=== PATIENT | female | born 1995 | race Caucasian/White ===

== ENCOUNTER 2023-12-06 19:38 | Inpatient (IN) | payer OTHER, SELFPAY ==
[2023-12-06 20:11] LABS: % Basophils 0.4 % (0-2); % Eosinophils 0.6 % (0-6); % Immature Granulocytes 0.7 % (0-0.5); % Lymphocytes 23.6 % (20.5-51.1); % Monocytes 6.2 % (1.7-9.3); % Neutrophils 68.5 % (42.2-75.2); Absolute Eosinophils 0.1 10^3/uL (0-0.7); Absolute Immature Granulocytes 0.1 10^3/uL (0-0.05); Absolute Lymphocytes 2.3 10^3/uL (1.2-3.4); Absolute Monocytes 0.6 10^3/uL (0.1-0.6); Absolute Neutrophils 6.5 10^3/uL (1.4-6.5); Hematocrit 32.5 % (37.0-47.0); Hemoglobin 11.8 g/dL (12.0-16.0); Mean Corp Hgb Conc. 36.3 g/dL (33.0-37.0); Mean Corpuscular Hgb 30.9 pg (27.0-31.0); Mean Corpuscular Volume 85.1 fL (81.0-99.0); Mean Platelet Volume 12.8 fL (7.4-10.4); Nucleated Red Blood Cells % 0 %; Platelet Count 137 10^3/uL (130-400); Red Blood Cell Count 3.82 10^6/uL (4.20-5.40); Red Cell Dist. Width 13.5 % (11.5-14.5); White Blood Cell Count 9.5 10^3/uL (4.8-10.8)
[2023-12-06 20:13] VITALS: BP 132/90; BMI 28.7
[2023-12-06] MEDS: CYTOTEC 25 MICROGRAM VAG (20:43)
[2023-12-07] MEDS: LR 1000 IV ×3 (01:15→19:08)
[2023-12-07] MEDS: PENICILLIN 110 UNITS IV (01:29)
[2023-12-07] MEDS: SUBLIMAZE 100 MCG EPIDURAL (02:22)
[2023-12-07] MEDS: FENTANYL/BUPIVACAINE 100 EPIDURAL ×2 (02:22→10:55)
[2023-12-07] MEDS: PENICILLIN 55 UNITS IV ×3 (05:43→14:38)
[2023-12-07] MEDS: ZOFRAN 4 MG IV ×2 (08:31→20:26)
[2023-12-07] MEDS: PITOCIN 30 UNITS/NSS 500 ML IV (11:53)
[2023-12-07] MEDS: METHERGINE INJECTION 0.200000000000000011 MG IM (17:39)
[2023-12-07] MEDS: TRANDATE 40 MG IV (18:46)
[2023-12-07 19:03] LABS: ALT (SGPT) 15 U/L (0-35); AST (SGOT) 42 U/L (14-36); Albumin 3.1 g/dl (3.5-5.0); Alkaline Phosphatase 186 U/L (38-126); Blood Urea Nitrogen 11 mg/dl (7-17); Carbon Dioxide 12 mmol/L (22-30); Chloride 107 mmol/L (98-107); Estimated Creatinine Clearance 113 ml/min; Glucose 101 mg/dl (70-99); Potassium 4.4 mmol/L (3.5-5.1); Sodium 132 mmol/L (135-145); Total Bilirubin 0.8 mg/dl (0.2-1.3); Total Protein 5.7 g/dl (6.3-8.2); eGFR > 60.00
[2023-12-07] MEDS: MAGNESIUM SULFATE 100 IV (19:08)
[2023-12-07 19:09] LABS: % Basophils 0.2 % (0-2); % Eosinophils 0.5 % (0-6); % Immature Granulocytes 0.6 % (0-0.5); % Lymphocytes 4.6 % (20.5-51.1); % Monocytes 5.1 % (1.7-9.3); Absolute Basophils 0.1 10^3/uL (0-0.2); Absolute Eosinophils 0.1 10^3/uL (0-0.7); Absolute Immature Granulocytes 0.1 10^3/uL (0-0.05); Absolute Monocytes 1.1 10^3/uL (0.1-0.6); Absolute Neutrophils 19.3 10^3/uL (1.4-6.5); Hematocrit 35.3 % (37.0-47.0); Hemoglobin 12.9 g/dL (12.0-16.0); Mean Corp Hgb Conc. 36.5 g/dL (33.0-37.0); Mean Corpuscular Hgb 30.9 pg (27.0-31.0); Mean Corpuscular Volume 84.4 fL (81.0-99.0); Mean Platelet Volume 12.5 fL (7.4-10.4); Nucleated Red Blood Cells % 0 %; Platelet Count 125 10^3/uL (130-400); Red Blood Cell Count 4.18 10^6/uL (4.20-5.40); Red Cell Dist. Width 13.8 % (11.5-14.5); White Blood Cell Count 21.7 10^3/uL (4.8-10.8)
[2023-12-07] MEDS: TRANDATE 20 MG IV (19:11)
[2023-12-07] MEDS: MAGNESIUM SULFATE 40 GRAM 1000 IV (19:32)
[2023-12-07] MEDS: TORADOL 15 MG IV (20:25)
[2023-12-07] MEDS: TYLENOL 650 MG PO (23:28)
[2023-12-08] MEDS: TYLENOL 650 MG PO ×4 (04:04→18:45)
[2023-12-08 04:57] LABS: Hematocrit 31.6 % (37.0-47.0); Hemoglobin 11.2 g/dL (12.0-16.0)
[2023-12-08] MEDS: LR IV (05:46)
[2023-12-08 06:05] LABS: Magnesium 6.2 mg/dl (1.6-2.3)
[2023-12-08] MEDS: LR 1000 IV (08:37)
[2023-12-08] MEDS: MOTRIN 600 MG PO (12:44)
[2023-12-08 14:39] LABS: Syphilis/T. pallidum Ab Reflex Negative (Negative)
[2023-12-08] MEDS: MAGNESIUM SULFATE 40 GRAM 1000 IV (14:53)
[2023-12-09] MEDS: TYLENOL 650 MG PO ×2 (04:05→18:49)
[2023-12-09] MEDS: SENOKOT-S 1 TABLET PO (08:19)
[2023-12-09] MEDS: PROCARDIA XL (EXTENDED RELEASE) 30 MG PO (10:11)
[2023-12-09] MEDS: MOTRIN 600 MG PO ×2 (10:30→18:50)
[2023-12-09 10:46] LABS: ALT (SGPT) 18 U/L (0-35); AST (SGOT) 41 U/L (14-36); Albumin 2.8 g/dl (3.5-5.0); Alkaline Phosphatase 128 U/L (38-126); Blood Urea Nitrogen 8 mg/dl (7-17); Calcium 8.5 mg/dl (8.4-10.2); Carbon Dioxide 24 mmol/L (22-30); Chloride 108 mmol/L (98-107); Estimated Creatinine Clearance 113 ml/min; Glucose 109 mg/dl (70-99); Sodium 135 mmol/L (135-145); Total Bilirubin 0.4 mg/dl (0.2-1.3); Total Protein 5.3 g/dl (6.3-8.2); eGFR > 60.00
[2023-12-09] MEDS: REGLAN 10 MG IV (19:06)
[2023-12-09] MEDS: BENADRYL 25 MG IV (19:08)
[2023-12-10] MEDS: ZOFRAN 4 MG IV (05:38)
[2023-12-10] MEDS: PROCARDIA XL (EXTENDED RELEASE) 30 MG PO (08:06)
[2023-12-10] MEDS: MOTRIN 600 MG PO (08:07)
== END 2023-12-10 14:29 | disposition home or self-care (01) | DRG 807 ==
LOC: LDRP 19:38
PROVIDERS: Obstetrics & Gynecology; ADMITTING PHYSICIAN Obstetrics & Gynecology; FAMILY PHYSICIAN Internal Medicine
PROC: 3E0P7VZ Introduction of Hormone into Female Reproductive, Via Natural or Artificial Opening (ICD-10-PCS; 2023-12-06)
PROC: 3E033VJ Introduction of Other Hormone into Peripheral Vein, Percutaneous Approach (ICD-10-PCS; 2023-12-06)
PROC: 10E0XZZ Delivery of Products of Conception, External Approach (ICD-10-PCS; 2023-12-07)
PROC: 0UQMXZZ Repair Vulva, External Approach (ICD-10-PCS; 2023-12-07)
PROC: 0KQM0ZZ Repair Perineum Muscle, Open Approach (ICD-10-PCS; 2023-12-07)
PROC: 10907ZC Drainage of Amniotic Fluid, Therapeutic from Products of Conception, Via Natural or Artificial Opening (ICD-10-PCS; 2023-12-07)
DX: O48.0 Post-term pregnancy (principal); Z37.0 Single live birth; Z3A.41 41 weeks gestation of pregnancy; O70.1 Second degree perineal laceration during delivery; O99.02 Anemia complicating childbirth; D50.9 Iron deficiency anemia, unspecified; O99.824 Streptococcus B carrier state complicating childbirth; O77.0 Labor and delivery complicated by meconium in amniotic fluid; O14.15 Severe pre-eclampsia, complicating the puerperium; R51.9 Headache, unspecified
CPT/HCPCS: 88307; 80053; 83735; 85014; 85018; 85025; 86780; 86850; 86900; 86901